=== PATIENT | female | born 1935 | race Caucasian/White ===

== ENCOUNTER 2021-01-10 16:04 | Emergency (ER) | payer OTHER ==
[2021-01-10 18:03] LABS: EOSINOPHIL 0.3 % (0-7); HCT 45.5 % (37.0-47.0); HGB 14.9 g/dl (12.5-16.0); LYMPHOCYTE 25.9 % (15-48); MCH 30.7 pg (25.0-31.0); MCHC 32.7 g/dL (32.0-36.0); MCV 93.6 fL (78.0-100.0); MONOCYTE 8.2 % (0-12); MPV 10.3 fL (6.0-9.5); NEUTROPHIL 64.5 % (41-80); NRBC 0; PLT 231 K/uL (150-400); RBC 4.86 M/uL (4.20-5.40); RDW 13.2 % (11.5-14.0); WBC 6.7 K/uL (4.0-10.5)
[2021-01-10 18:27] LABS: ALBUMIN 4.1 g/dL (3.4-5.0); BILIRUBIN - TOTAL 0.5 mg/dL (0.2-1.0); BUN/CREAT RATIO (CALC) 23.8 RATIO; CREATININE 1.26 mg/dL (0.51-0.95); GLOBULIN (CALCULATION) 3.7 g/dL; POTASSIUM 4.2 mmol/L (3.5-5.1); TOTAL PROTEIN 7.8 g/dL (6.4-8.2)
[2021-01-10] MEDS ORDERED: ANTIVERT12.5 MG PO (18:44)
== END 2021-01-10 18:59 | disposition home or self-care (01) ==
LOC: FER 16:04
PROVIDERS: Internal Medicine
DX: R42 Dizziness and giddiness (principal); I12.9 Hypertensive chronic kidney disease with stage 1 through stage 4 chronic kidney disease, or unspecified chronic kidney disease; N17.9 Acute kidney failure, unspecified; N18.9 Chronic kidney disease, unspecified
CPT/HCPCS: 36415; 70450; 71045; 80053; 84484; 85025; 93005

== ENCOUNTER 2021-11-18 10:54 | Day surgery (SDCO) | payer OTHER ==
[~2021-11-18] VITALS: Ht 157.5 cm; Wt 49.5 kg
[~2021-11-18 10:54] MED LIST: ANTIVERT12.5 MG PO
[2021-11-18 11:49] LABS: EOSINOPHIL 0.7 % (0-7); HCT 42.1 % (37.0-47.0); HGB 13.2 g/dl (12.5-16.0); LYMPHOCYTE 19.5 % (15-48); MCH 30.2 pg (25.0-31.0); MCHC 31.4 g/dL (32.0-36.0); MCV 96.3 fL (78.0-100.0); MONOCYTE 9.5 % (0-12); MPV 10.6 fL (6.0-9.5); NEUTROPHIL 68.9 % (41-80); NRBC 0; PLT 206 K/uL (150-400); RBC 4.37 M/uL (4.20-5.40); RDW 13.8 % (11.5-14.0); WBC 6.7 K/uL (4.0-10.5)
[2021-11-18 11:54] LABS: INR 1.04 (0.9-1.2); PROTHROMBIN TIME 13.3 SECONDS (11.9-13.9); PTT 29.7 SECONDS (24.9-34.6)
[2021-11-18 11:56] LABS: D-DIMER 0.84 ug/mLFEU (0.00-0.41)
[2021-11-18 12:19] LABS: CKMB 4.6 ng/mL (0.0-3.6)
[2021-11-18 12:32] LABS: CREATININE 1.29 mg/dL (0.51-0.95); POTASSIUM 4.9 mmol/L (3.5-5.1)
[2021-11-18] MEDS ORDERED: ACETAMINOPHEN325 MG PO (17:01)
[2021-11-18] MEDS ORDERED: TOPROL XL 50 MG50 MG PO (17:02)
[2021-11-18] MEDS ORDERED: PLAQUENIL200 MG PO (17:02)
[2021-11-18] MEDS ORDERED: ASPIRIN EC81 M1 PO (17:05)
[2021-11-18] MEDS ORDERED: CALCIUM500 MG PO (17:06)
[2021-11-18] MEDS ORDERED: TYLENOL W/CODEIN5 ML PO (17:08)
[2021-11-18] MEDS ORDERED: PROTONIX 40MG T40 MG PO (17:08)
[2021-11-18] MEDS ORDERED: NORVASC5 MG PO (17:09)
[2021-11-18] MEDS ORDERED: WOMEN'S DAILY1 EAC1 PO (17:09)
[2021-11-19] MEDS ORDERED: LASIX20 MG PO (10:28)
[2021-11-19] MEDS ORDERED: UROCIT-K10 MEQ PO (10:28)
--- NOTE | 2021-11-19 12:35 | NUR ---
11/19/21 A social work consult was requested after patient respond yes to the question, "Do you consider harming yourself". Ms. Pierce told the nurse she would not harm herself because she wants to go to [facility]. An assessment was conducted at bedside with her [id number], Khalida Pierce, present. - Ms. Pierce is oriented to self, place, and with reassurance. She was not able to name the number of children. She is also [place]. Amalia Pierce reports patient to have memory deficits. - Ms. Pierce denied suicidal ideations, plans, or intentions. When asked about her respnse to the nurse, she said, "you know, when girls are talking". According to Amalia there are antiquic rifles in the home that couldn't be used nor are old medications in the home. - Ms. Pierce denied feeling depressed. Ms. Pierce has experienced 3 deaths in the pas 5 years' her son 5 years ago, spouse - 3 years ago and a daughter 1 year ago. Ms. Pierce reports to [facility]. She is not interested in counseliling and finds support from her family. Amalia reports that there have been no indication of pt considering self harm. - Family provides 3 meals per day, sets up the medi-process planner and reminds Ms. Pierce when it is time to take her medications. A cigarette machines mechanic comes to the home once a month. Ms. Pierce has a rw. - A report was given to Dr. Anders and Dr. Power. Dr. Lancaster, PCP, was also provided with a report. - Referrals were made to [facility] for 02 at 2 L per patient choice.
== END 2021-11-19 15:07 | disposition home health service (06) ==
LOC: FER 10:54 → FMS 14:01
PROVIDERS: Emergency Medicine; ADMIT Internal Medicine
DX: I13.0 Hypertensive heart and chronic kidney disease with heart failure and stage 1 through stage 4 chronic kidney disease, or unspecified chronic kidney disease (principal); N18.30 Chronic kidney disease, stage 3 unspecified; I50.9 Heart failure, unspecified; I48.0 Paroxysmal atrial fibrillation; I10 Essential (primary) hypertension; E78.5 Hyperlipidemia, unspecified; M06.9 Rheumatoid arthritis, unspecified; Z79.82 Long term (current) use of aspirin; Z79.899 Other long term (current) drug therapy; Z20.822 Contact with and (suspected) exposure to COVID-19
CPT/HCPCS: 36415; 36600; 71045; 80048; 82553; 82803; 83880; 84484; 85025; 85379; 85610; 85730; 93005; 94762; G0378; J1940; U0002